=== PATIENT | female | born 1985 | race African-American/Black ===

== ENCOUNTER 2018-09-08 14:04 | Emergency (ER) | payer MEDICAID, OTHER, SELFPAY ==
[~2018-09-08] VITALS: Ht 175.3 cm; Wt 73.3 kg
--- NOTE | 2018-09-08 14:43 | NUR ---
SET FOR PELVIC
--- NOTE | 2018-09-08 14:55 | NUR ---
SBAR report received from RNMahesh. Pt resting on gynnie bed, pt aware of plan for vaginal exam.
--- NOTE | 2018-09-08 15:05 | NUR ---
Marguerite KRISHNA, at bedside for vaginal exam.
[2018-09-08 15:34] LABS: CLUE CELLS NONE SEEN (NONE SEEN)
[2018-09-08 15:35] LABS: WET PREP WBCS FEW (FEW)
--- NOTE | 2018-09-08 15:39 | NUR ---
Pt to imaging, with tech, via [employer]. Pt and tech aware of need for urine sample.
[2018-09-08 15:52] LABS: BASOPHILS # (AUTO) 0.07 x10^3/uL (0-0.1); BASOPHILS % (AUTO) 1 % (0-1); EOSINOPHILS # (AUTO) 0.11 x10^3/uL (0-0.4); EOSINOPHILS % (AUTO) 1 % (1-7); LYMPHOCYTES # (AUTO) 1.63 x10^3/uL (1-3.4); LYMPHOCYTES % (AUTO) 22 % (22-44); MD NO; MEAN CORPUSCULAR HEMOGLOBIN 27.7 pg (27.0-34.8); MEAN CORPUSCULAR HGB CONC 31.6 g/dL (32.4-35.8); MEAN CORPUSCULAR VOLUME 87.6 fL (80-100); MEAN PLATELET VOLUME 8.9 fL (7.4-10.4); MONOCYTES # (AUTO) 0.52 x10^3/uL (0.2-0.8); MONOCYTES % (AUTO) 7 % (2-9); NEUTROPHILS % (AUTO) 69 % (42-75); PLATELET COUNT 239 x10^3/uL (130-400); RED BLOOD COUNT 4.25 x10^6/uL (3.82-5.3); RED CELL DISTRIBUTION WIDTH 13.7 % (9.6-15.2)
--- NOTE | 2018-09-08 15:56 | NUR ---
Pt back to room from imaging.
[2018-09-08 16:02] LABS: ANION GAP 7 mmol/L (5-15); CHLORIDE 109 mmol/L (98-107)
[2018-09-08 16:04] LABS: CREATININE 0.54 mg/dL (0.55-1.02)
--- NOTE | 2018-09-08 16:11 | NUR ---
Urine sample collected and sent to lab.
[2018-09-08] MEDS ORDERED: prenatals PO (16:13)
[2018-09-08] MEDS ORDERED: promethazine PO (16:13)
[2018-09-08 16:28] LABS: CULTURE INDICATED? YES; MICROSCOPIC INDICATED
[2018-09-08 17:13] VITALS: BP 104/59
--- NOTE | 2018-09-08 17:13 | NUR ---
Dr. Lane at bedside to discuss ED findings and POC.
--- NOTE | 2018-09-08 17:37 | NUR ---
Patient/Caregiver given discharge instructions and they have confirmed that they understand the instructions. Patient ambulatory with steady gait.
== END 2018-09-08 17:38 | disposition home or self-care (01) ==
LOC: ED 16:15
DX: O26.892 Other specified pregnancy related conditions, second trimester (principal); S39.012A Strain of muscle, fascia and tendon of lower back, initial encounter; R10.2 Pelvic and perineal pain; Z3A.16 16 weeks gestation of pregnancy; X58.XXXA Exposure to other specified factors, initial encounter; Y93.89 Activity, other specified; Y92.89 Other specified places as the place of occurrence of the external cause; Y99.8 Other external cause status
CPT/HCPCS: 36415; 76815; 80048; 81001; 82040; 85025; 87086; 87210; 87491; 87591; 87808; 99284

== ENCOUNTER 2018-10-26 16:51 | Observation (INO) | payer MEDICAID ==
[~2018-10-26] VITALS: Ht 175.3 cm; Wt 81.3 kg
[~2018-10-26 16:51] MED LIST: LACTATED RINGERS 1,000 ML IV SCH; prenatals PO; promethazine PO
[2018-10-26 16:53] VITALS: BP 111/57
[2018-10-26] MEDS ORDERED: INDOMETHACIN 25 MG CAPSULE ONE ×2 (16:59→22:39)
[2018-10-26] MEDS ORDERED: SUCRALFATE 1 GM/10 ML UDC PO SCH (17:00)
[2018-10-26] MEDS: INDOMETHACIN 25 MG CAPSULE PO SCH ×2 (17:06→22:43)
[2018-10-26 17:14] LABS: BASOPHILS # (AUTO) 0.04 x10^3/uL (0-0.1); BASOPHILS % (AUTO) 1 % (0-1); EOSINOPHILS # (AUTO) 0.07 x10^3/uL (0-0.4); EOSINOPHILS % (AUTO) 1 % (1-7); LYMPHOCYTES % (AUTO) 16 % (22-44); MD NO; MEAN CORPUSCULAR HEMOGLOBIN 27.6 pg (27.0-34.8); MEAN CORPUSCULAR HGB CONC 32.1 g/dL (32.4-35.8); MEAN CORPUSCULAR VOLUME 85.8 fL (80-100); MEAN PLATELET VOLUME 9.1 fL (7.4-10.4); MONOCYTES # (AUTO) 0.62 x10^3/uL (0.2-0.8); MONOCYTES % (AUTO) 7 % (2-9); NEUTROPHILS # (AUTO) 6.89 x10^3/uL (1.8-6.8); NEUTROPHILS % (AUTO) 76 % (42-75); PLATELET COUNT 219 x10^3/uL (130-400); RED CELL DISTRIBUTION WIDTH 13.4 % (9.6-15.2)
[2018-10-26] MEDS ORDERED: TERBUTALINE 1 MG/ML, 1ML ONE (17:14)
[2018-10-26] MEDS ORDERED: FENTANYL PF 100 MCG/2ML ONE (17:37)
[2018-10-26] MEDS ORDERED: TERBUTALINE 1 MG/ML, 1ML SQ ONE (18:30)
[2018-10-26] MEDS ORDERED: SUCR1ORA5 PO (18:49)
[2018-10-26] MEDS ORDERED: ONDANSETRON ODT 4 MG ONE (19:47)
[2018-10-26] MEDS ORDERED: ONDANSETRON ODT 4 MG PO ONE (20:00)
== END 2018-10-26 23:24 | disposition home or self-care (01) ==
LOC: LDOP 16:51 → LDIP 16:57 → INTOOBSV 16:57 → OBSVTOIN 16:57
PROVIDERS: ADMIT Obstetrics & Gynecology Maternal & Fetal Medicine; ATTEND Obstetrics & Gynecology Maternal & Fetal Medicine
DX: O26.872 Cervical shortening, second trimester (principal); O34.32 Maternal care for cervical incompetence, second trimester; Z3A.23 23 weeks gestation of pregnancy
CPT/HCPCS: 36415; 59320; 85025; 86850; 86900; 96372; 99211; G0378; J3010; J3105; Q0162; G0463

== ENCOUNTER 2018-12-09 14:12 | Outpatient (CLI) | payer MEDICAID ==
[~2018-12-09] VITALS: Ht 175.3 cm; Wt 78.6 kg
[~2018-12-09 14:12] MED LIST changes: -LACTATED RINGERS 1,000 ML IV SCH; +SUCR1ORA5 PO
[2018-12-09 14:38] VITALS: BP 113/59
[2018-12-09] MEDS ORDERED: DIPH25CA61 PO (14:50)
[2018-12-09] MEDS ORDERED: DOCU-131 PO (14:50)
[2019-01-15] MEDS ORDERED: ACYC-114 PO (08:55)
== END 2018-12-09 23:59 | disposition home or self-care (01) ==
LOC: LDOP 14:12
PROVIDERS: ATTEND Obstetrics & Gynecology
DX: O62.9 Abnormality of forces of labor, unspecified (principal); Z3A.29 29 weeks gestation of pregnancy
CPT/HCPCS: 84112